=== PATIENT | female | born 1945 | race Caucasian/White ===

== ENCOUNTER 2025-03-30 09:48 | Day surgery (SDC) | payer MEDICARE, OTHER ==
[2025-03-30] VITALS (11 sets, daily range): BP systolic 83–169; BP diastolic 38–97; PULSE 60–80; RESP 12–23; TEMP 98; O2SAT 95–98
[~2025-03-30] VITALS: Ht 157.5 cm; Wt 73.1 kg
[~2025-03-30 09:48] MED LIST: AMLO5TAB16 PO; ATOR20TA66 PO; DEXL60CA18 PO; DOCUMENT DATE & TIME OF BETA-BLOCKER PO ONE; FAMO20TA8 PO; LOSA50TA64 PO; MECL-302 PO; POTA-192 PO; SOTA80TA PO; ringers solution, lacted 1,000 ML IV SCH; simethicone 40mg/0.6ml oral drops 15ml PO ONE
[2025-03-30] MEDS ORDERED: propofol inj 20 ML IV ONE ×2 (11:45)
== END 2025-03-30 13:59 | disposition home or self-care (01) ==
LOC: PAS 09:48
PROVIDERS: ATTEND Internal Medicine Gastroenterology
DX: D50.9 Iron deficiency anemia, unspecified (principal); K57.30 Diverticulosis of large intestine without perforation or abscess without bleeding; K63.5 Polyp of colon; I10 Essential (primary) hypertension; E78.5 Hyperlipidemia, unspecified; K21.9 Gastro-esophageal reflux disease without esophagitis; Z87.891 Personal history of nicotine dependence; Z90.89 Acquired absence of other organs; Z98.890 Other specified postprocedural states
CPT/HCPCS: 45380; 45385; 82948; A4615; A4620; J2704; J7120; Z7512; Z7610